=== PATIENT | female | born 1945 | race Caucasian/White ===

== ENCOUNTER 2017-03-02 08:04 | Outpatient (CLI) | payer MEDICARE, OTHER | END 2017-03-02 08:05 | disposition home or self-care (01) | DX: I10 Essential (primary) hypertension (principal); E03.9 Hypothyroidism, unspecified; E78.5 Hyperlipidemia, unspecified ==

== ENCOUNTER 2018-02-14 09:14 | Outpatient (CLI) | payer MEDICARE, OTHER ==
[2018-02-14 12:41] LABS: BASOPHILS % (AUTO) 0.8 %; EOSINOPHILS # (AUTO) 0.1 10^3/uL (0.0-0.7); EOSINOPHILS % (AUTO) 3.2 %; HGB - HEMOGLOBIN 14.2 g/dL (12.0-16.0); LYMPHOCYTES # (AUTO) 1.1 10^3/uL (1.5-3.5); LYMPHOCYTES % (AUTO) 26.6 %; MEAN CORPUSCULAR HEMOGLOBIN 30.2 pg (27.0-31.0); MEAN CORPUSCULAR HGB CONC 33.3 g/dL (32.0-36.0); MEAN CORPUSCULAR VOLUME 90.7 fL (81.0-99.0); MEAN PLATELET VOLUME 9.8 fL (7.9-10.8); MONOCYTES # (AUTO) 0.5 10^3/uL (0.0-1.0); MONOCYTES % (AUTO) 11.3 %; NEUTROPHILS # (AUTO) 2.4 10^3/uL (1.5-6.6); NEUTROPHILS % (AUTO) 58.1 %; PLT - PLATELET COUNT 198 10^3/uL (130-450); RED BLOOD COUNT 4.69 10^6/uL (4.20-5.40); RED CELL DISTRIBUTION WIDTH 13.7 % (12.0-15.0); WHITE BLOOD COUNT 4.1 x10^3/uL (4.8-10.8)
[2018-02-14 13:09] LABS: ALBUMIN 4.1 g/dL (3.2-5.5); ALBUMIN/GLOBULIN RATIO 1.2 (1.0-2.2); ALKALINE PHOSPHATASE 72 IU/L (42-121); ALT ALANINE AMINOTRANSFERASE 14 IU/L (10-60); AST ASPARTATE AMINOTRANSFERASE 17 IU/L (10-42); BILIRUBIN,TOTAL 0.7 mg/dL (0.2-1.0); BUN - BLOOD UREA NITROGEN 12 mg/dL (6-20); CALCIUM 9.1 mg/dL (8.5-10.3); CARBON DIOXIDE - CO2 26 mmol/L (21-32); CHLORIDE 106 mmol/L (101-111); CHOL/HDL RATIO 3.7 (<4.4); CHOLESTEROL 210 mg/dL; CREATININE 0.8 mg/dL (0.4-1.0); GFR - MDRD 71 (>89); GLUCOSE 96 mg/dL (70-100); HDL CHOLESTEROL 57 mg/dL; LDL CHOLESTEROL,CALCULATED 119 mg/dL; LDL/HDL RATIO 2.1 (<4.4); SODIUM 139 mmol/L (135-145); TOTAL PROTEIN 7.5 g/dL (6.7-8.2); VLDL CHOLESTEROL 34 mg/dL
== END 2018-02-14 09:15 | disposition home or self-care (01) ==
LOC: LAB.N 09:14
PROVIDERS: ATTEND Nurse Practitioner Gerontology
DX: E78.5 Hyperlipidemia, unspecified (principal); I10 Essential (primary) hypertension; E03.9 Hypothyroidism, unspecified
CPT/HCPCS: 36415; 80053; 80061; 83721; 84443; 85025

== ENCOUNTER 2019-02-09 08:00 | Outpatient (CLI) | payer MEDICARE, OTHER ==
[2019-02-09 12:57] LABS: BASOPHILS % (AUTO) 0.8 %; EOSINOPHILS # (AUTO) 0.2 10^3/uL (0.0-0.7); EOSINOPHILS % (AUTO) 3.3 %; HGB - HEMOGLOBIN 13.8 g/dL (12.0-16.0); LYMPHOCYTES # (AUTO) 1.6 10^3/uL (1.5-3.5); LYMPHOCYTES % (AUTO) 33.4 %; MEAN CORPUSCULAR HEMOGLOBIN 30.4 pg (27.0-31.0); MEAN CORPUSCULAR HGB CONC 33.1 g/dL (32.0-36.0); MEAN CORPUSCULAR VOLUME 91.8 fL (81.0-99.0); MEAN PLATELET VOLUME 9.8 fL (7.9-10.8); MONOCYTES # (AUTO) 0.5 10^3/uL (0.0-1.0); MONOCYTES % (AUTO) 10.4 %; NEUTROPHILS # (AUTO) 2.6 10^3/uL (1.5-6.6); NEUTROPHILS % (AUTO) 52.1 %; PLT - PLATELET COUNT 244 10^3/uL (130-450); RED BLOOD COUNT 4.55 10^6/uL (4.20-5.40); RED CELL DISTRIBUTION WIDTH 13.9 % (12.0-15.0); WHITE BLOOD COUNT 4.9 x10^3/uL (4.8-10.8)
[2019-02-09 13:32] LABS: CHOL/HDL RATIO 3.6 (<4.4); CHOLESTEROL 211 mg/dL; HDL CHOLESTEROL 59 mg/dL; LDL CHOLESTEROL,CALCULATED 113 mg/dL; LDL/HDL RATIO 1.9 (<4.4); VLDL CHOLESTEROL 39 mg/dL
== END 2019-02-09 23:59 | disposition home or self-care (01) ==
LOC: LAB.N 08:00
PROVIDERS: ATTEND Nurse Practitioner Gerontology
DX: E78.5 Hyperlipidemia, unspecified (principal); I10 Essential (primary) hypertension; E03.9 Hypothyroidism, unspecified
CPT/HCPCS: 36415; 80061; 83721; 84443; 85025

== ENCOUNTER 2019-06-01 10:03 | Outpatient (CLI) | payer MEDICARE, OTHER | END 2019-06-01 23:59 | disposition home or self-care (01) | LOC: LAB.N 10:03 | PROVIDERS: ATTEND Nurse Practitioner Gerontology | DX: E03.9 Hypothyroidism, unspecified (principal) | CPT/HCPCS: 36415; 84443 ==

== ENCOUNTER 2020-02-08 08:16 | Outpatient (CLI) | payer MEDICARE, OTHER ==
[2020-02-08 12:27] LABS: EOSINOPHILS % (AUTO) 3.4 %; HGB - HEMOGLOBIN 13.9 g/dL (12.0-16.0); LYMPHOCYTES % (AUTO) 31.3 %; MEAN CORPUSCULAR HEMOGLOBIN 30.2 pg (27.0-31.0); MEAN CORPUSCULAR HGB CONC 31.9 g/dL (32.0-36.0); MEAN CORPUSCULAR VOLUME 94.6 fL (81.0-99.0); MEAN PLATELET VOLUME 11.5 fL (7.9-10.8); MONOCYTES % (AUTO) 11.7 %; NEUTROPHILS % (AUTO) 52.1 %; PLT - PLATELET COUNT 257 10^3/uL (130-450); RED BLOOD COUNT 4.61 10^6/uL (4.20-5.40); RED CELL DISTRIBUTION WIDTH 13.7 % (12.0-15.0); WHITE BLOOD COUNT 4.1 x10^3/uL (4.8-10.8)
[2020-02-08 13:06] LABS: ALBUMIN 3.8 g/dL (3.2-5.5); ALBUMIN/GLOBULIN RATIO 1.1 (1.0-2.2); ALKALINE PHOSPHATASE 82 IU/L (42-121); ALT ALANINE AMINOTRANSFERASE 10 IU/L (10-60); AST ASPARTATE AMINOTRANSFERASE 14 IU/L (10-42); BILIRUBIN,TOTAL 0.8 mg/dL (0.2-1.0); BUN - BLOOD UREA NITROGEN 15 mg/dL (6-20); CARBON DIOXIDE - CO2 28 mmol/L (21-32); CHLORIDE 106 mmol/L (101-111); CHOL/HDL RATIO 3.4 (<4.4); CHOLESTEROL 208 mg/dL; CREATININE 0.8 mg/dL (0.4-1.0); GFR - MDRD 70 (>89); GLUCOSE 92 mg/dL (70-100); HDL CHOLESTEROL 61 mg/dL; LDL CHOLESTEROL,CALCULATED 125 mg/dL; SODIUM 140 mmol/L (135-145); TOTAL PROTEIN 7.2 g/dL (6.7-8.2); VLDL CHOLESTEROL 22 mg/dL
[2020-02-08 13:51] LABS: ABNORMAL LYMPHS % (MANUAL) 0 %
[2020-02-08 13:56] LABS: BAND NEUTROPHILS % (MANUAL) 2 %; EOSINOPHILS # (MANUAL) 0.2 10^3/uL (0-0.7); LYMPHOCYTES # (MANUAL) 1.6 10^3/uL (1.5-3.5); LYMPHOCYTES % (MANUAL) 35 %; MONOCYTES # (MANUAL) 0.4 10^3/uL (0.0-1.0)
[2020-02-08 13:57] LABS: DIFFERENTIAL COMMENT MANUAL DIFFERENTIAL
[2020-02-08 13:58] LABS: PLATELET ESTIMATE, MANUAL NORMAL (130-450,000) (NORMAL); PLATELET MORPHOLOGY NORMAL APPEARANCE (NORMAL); RBC MORPHOLOGY (MULTIPLE) NORMAL APPEARANCE (NORMAL)
== END 2020-02-08 23:59 | disposition home or self-care (01) ==
LOC: LAB.N 08:16
PROVIDERS: ATTEND Nurse Practitioner Gerontology
DX: E78.5 Hyperlipidemia, unspecified (principal); I10 Essential (primary) hypertension; E03.9 Hypothyroidism, unspecified
CPT/HCPCS: 36415; 80053; 80061; 83721; 84443; 85025

== ENCOUNTER 2021-01-16 08:19 | Outpatient (CLI) | payer MEDICARE, OTHER ==
[2021-01-16 12:30] LABS: ALBUMIN/GLOBULIN RATIO 1.2 (1.0-2.2); ALKALINE PHOSPHATASE 67 IU/L (42-121); ALT ALANINE AMINOTRANSFERASE 13 IU/L (10-60); AST ASPARTATE AMINOTRANSFERASE 16 IU/L (10-42); BUN - BLOOD UREA NITROGEN 13 mg/dL (6-20); CALCIUM 9.3 mg/dL (8.5-10.3); CARBON DIOXIDE - CO2 27 mmol/L (21-32); CHLORIDE 103 mmol/L (101-111); CHOL/HDL RATIO 3.4 (<4.4); CHOLESTEROL 232 mg/dL; CREATININE 0.7 mg/dL (0.4-1.0); GLUCOSE 86 mg/dL (70-100); HDL CHOLESTEROL 69 mg/dL; LDL CHOLESTEROL,CALCULATED 132 mg/dL; LDL/HDL RATIO 1.9 (<4.4); TOTAL PROTEIN 7.3 g/dL (6.7-8.2); VLDL CHOLESTEROL 31 mg/dL
[2021-01-16 12:37] LABS: BASOPHILS # (AUTO) 0.1 10^3/uL (0.0-0.1); BASOPHILS % (AUTO) 1.1 %; EOSINOPHILS # (AUTO) 0.2 10^3/uL (0.0-0.7); EOSINOPHILS % (AUTO) 3.4 %; LYMPHOCYTES # (AUTO) 1.5 10^3/uL (1.5-3.5); LYMPHOCYTES % (AUTO) 34.3 %; MEAN CORPUSCULAR HEMOGLOBIN 29.9 pg (27.0-31.0); MEAN CORPUSCULAR HGB CONC 30.8 g/dL (32.0-36.0); MEAN PLATELET VOLUME 10.9 fL (7.9-10.8); MONOCYTES # (AUTO) 0.5 10^3/uL (0.0-1.0); MONOCYTES % (AUTO) 10.5 %; NEUTROPHILS # (AUTO) 2.2 10^3/uL (1.5-6.6); NEUTROPHILS % (AUTO) 50.5 %; PLT - PLATELET COUNT 272 10^3/uL (130-450); RED BLOOD COUNT 4.68 10^6/uL (4.20-5.40); RED CELL DISTRIBUTION WIDTH 13.2 % (12.0-15.0); WHITE BLOOD COUNT 4.4 x10^3/uL (4.8-10.8)
== END 2021-01-16 23:59 | disposition home or self-care (01) ==
LOC: LAB.WCP 08:19
PROVIDERS: ATTEND Nurse Practitioner Family
DX: E78.5 Hyperlipidemia, unspecified (principal); I10 Essential (primary) hypertension; E03.9 Hypothyroidism, unspecified
CPT/HCPCS: 36415; 80053; 80061; 83721; 84443; 85025

== ENCOUNTER 2022-01-05 09:29 | Outpatient (CLI) | payer MEDICARE, OTHER ==
[2022-01-05 11:37] LABS: BASOPHILS % (AUTO) 0.8 %; EOSINOPHILS # (AUTO) 0.2 10^3/uL (0.0-0.7); EOSINOPHILS % (AUTO) 3.1 %; HCT - HEMATOCRIT 45.4 % (37.0-47.0); HGB - HEMOGLOBIN 14.4 g/dL (12.0-16.0); LYMPHOCYTES # (AUTO) 1.6 10^3/uL (1.5-3.5); MEAN CORPUSCULAR HEMOGLOBIN 29.8 pg (27.0-31.0); MEAN CORPUSCULAR HGB CONC 31.7 g/dL (32.0-36.0); MEAN PLATELET VOLUME 11.1 fL (7.9-10.8); MONOCYTES # (AUTO) 0.6 10^3/uL (0.0-1.0); MONOCYTES % (AUTO) 12.3 %; NEUTROPHILS # (AUTO) 2.4 10^3/uL (1.5-6.6); NEUTROPHILS % (AUTO) 49.4 %; PLT - PLATELET COUNT 266 10^3/uL (130-450); RED BLOOD COUNT 4.83 10^6/uL (4.20-5.40); WHITE BLOOD COUNT 4.8 x10^3/uL (4.8-10.8)
[2022-01-05 13:15] LABS: THYROID STIMULATING HORMONE 3.43 uIU/mL (0.34-5.60)
[2022-01-05 13:26] LABS: ALKALINE PHOSPHATASE 73 IU/L (42-121); CARBON DIOXIDE - CO2 27 mmol/L (21-32); CHLORIDE 102 mmol/L (101-111); CHOLESTEROL 179 mg/dL; GLUCOSE 111 mg/dL (70-100); POTASSIUM 4.2 mmol/L (3.5-5.0); SODIUM 138 mmol/L (135-145)
[2022-01-05 15:20] LABS: ALBUMIN/GLOBULIN RATIO 1.1 (1.0-2.2); ALT ALANINE AMINOTRANSFERASE 13 IU/L (10-60); AST ASPARTATE AMINOTRANSFERASE 17 IU/L (10-42); BILIRUBIN,TOTAL 0.6 mg/dL (0.2-1.0); BUN - BLOOD UREA NITROGEN 17 mg/dL (6-20); CHOL/HDL RATIO 2.8 (<4.4); CREATININE 0.8 mg/dL (0.4-1.0); GFR - MDRD 70 (>89); HDL CHOLESTEROL 65 mg/dL; LDL CHOLESTEROL,CALCULATED 87 mg/dL; LDL/HDL RATIO 1.3 (<4.4); TOTAL PROTEIN 7.5 g/dL (6.7-8.2); TRIGLYCERIDES 137 mg/dL; VLDL CHOLESTEROL 27 mg/dL
== END 2022-01-05 09:30 | disposition home or self-care (01) ==
LOC: LAB.N 09:29
PROVIDERS: ATTEND Nurse Practitioner Family
DX: I10 Essential (primary) hypertension (principal); E78.5 Hyperlipidemia, unspecified; E03.9 Hypothyroidism, unspecified; F17.200 Nicotine dependence, unspecified, uncomplicated
CPT/HCPCS: 36415; 80053; 80061; 83721; 84443; 85025

== ENCOUNTER 2022-01-22 12:25 | Outpatient (CLI) | payer MEDICARE, OTHER ==
--- NOTE | 2022-01-22 17:22 | DEXA Report ---
PROCEDURE: Dexa Spine and/or Hip INDICATIONS: MENOPAUSAL TECHNIQUE: Dual energy x-ray absorptiometry (DXA) was performed on a Evrent System. Regions measur ed are the AP Spine, femoral neck, and if needed forearm. COMPARISON: None. FINDINGS: Lumbar Spine: Bone Mineral Density 0.857 g/cm/cm,T score -2.7, osteoporosis Left Hip: Bone Mineral Density 0.590 g/cm/cm,T score -3.3, osteoporosis Left Femoral Neck: Bone Mineral Density 0.634 g/cm/cm, T score -2.9, osteoporosis (T score greater or equal to -1.0: NORMAL) (T score from -1.1 to -2.4: OSTEOPENIA) (T score less than or equal to -2.5 to: OSTEOPOROSIS) Impression: Osteoporosis. Patients with diagnosis of osteoporosis or osteopenia should have regular bone mineral density assess ment. For those eligible for Medicare, routine testing is allowed once every 2 years. Testing frequ ency can be increased for patients who have rapidly progressing disease or for those who are receivin g medical therapy to restore bone mass. Reviewed by: Sophia Enciso MD, PhD on 01/22/2022 5:20 PM PST Approved by: Sophia Enciso MD, PhD on 01/22/2022 5:20 PM PST Station ID: [id number]
== END 2022-01-22 12:26 | disposition home or self-care (01) ==
LOC: DI 12:25
PROVIDERS: ATTEND Nurse Practitioner Family
DX: Z13.820 Encounter for screening for osteoporosis (principal); M81.0 Age-related osteoporosis without current pathological fracture; Z78.0 Asymptomatic menopausal state

== ENCOUNTER 2022-10-14 10:39 | Outpatient (CLI) | payer MEDICARE, OTHER ==
--- NOTE | 2022-10-14 13:15 | CT Report ---
PROCEDURE: Low Dose Lung Cancer Screen INDICATIONS: SMOKER TECHNIQUE: Noncontrast low-dose axial images were acquired from the pulmonary apices to the posterior costophren ic angles. Multiplanar MIP reformats were then reconstructed. For radiation dose reduction, the follo wing was used: automated exposure control, adjustment of mA and/or kV according to patient size. COMPARISON: 02/05/2016. FINDINGS: Image quality: Excellent. Lungs and pleura: 2 mm anterobasal segment right lower lobe pulmonary nodule, image 160/4. This was not identifiable on the previous study from 6.5 years ago. Mediastinum: Heart size is normal. No pericardial effusion. No mediastinal adenopathy by size crit eria. Thoracic aorta and central pulmonary arteries are normal in size. Esophagus is normal in nati liliana. No hiatal hernia. Bones and chest wall: No suspicious bony lesions. No vertebral body compression fractures. No axil tana or supraclavicular adenopathy by size criteria. Thyroid is unremarkable as imaged. Abdomen: Visualized upper abdomen solid organs and bowel loops appear normal in the absence of contr ast. IMPRESSION: There is a 2 mm anterior basal segment right lower lobe pulmonary nodule which was not identified on the previous study, 6.5 years ago. No other pulmonary nodules. Lung RAD: 2 - Benign Appearance or Behavior. Nodules with a very low likelihood of becoming a clinica lly active cancer due to size or lack of growth. Recommendation: 2 - Continue annual screening with LDCT in 12 months. Non-Lung Significant Findings: None CLINICAL RECOMMENDATION STATEMENTS: In patients <35 years with an ITN detected on CT, MRI, or extrathyroidal ultrasound, the Committee re commends further evaluation with dedicated thyroid ultrasound if the nodule is "e1 cm and has no susp icious imaging features, and if the patient has normal life expectancy. In patients "e35 years with an ITN detected on CT, MRI, or extrathyroidal ultrasound, the Committee r ecommends further evaluation with dedicated thyroid ultrasound if the nodule is "e1.5 cm and has no s uspicious imaging features, and if the patient has normal life expectancy. (ACR, 2014) Reviewed by: Gamaliel Meier MD on 10/14/2022 1:13 PM PST Approved by: Gamaliel Meier MD on 10/14/2022 1:13 PM PST Station ID: [id number] Lung-Rad Lung-Recommendation [id number]-Ghisirrbvda-[id number]
== END 2022-10-14 10:40 | disposition home or self-care (01) ==
LOC: DI 10:39
PROVIDERS: ATTEND Nurse Practitioner Family
DX: Z12.2 Encounter for screening for malignant neoplasm of respiratory organs (principal); R91.1 Solitary pulmonary nodule; F17.210 Nicotine dependence, cigarettes, uncomplicated

== ENCOUNTER 2023-04-07 11:10 | Outpatient (CLI) | payer MEDICARE, OTHER ==
--- NOTE | 2023-04-08 09:51 | Mammography Report ---
BILATERAL DIGITAL SCREENING MAMMOGRAM 3D/2D: 04/07/2023 CLINICAL: Routine screening. Comparison is made to exams dated: 02/05/2016 mammogram, 03/14/2014 mammogram, and 02/16/2012 mammogram - Merged with [facility]. Both breasts are almost entirely fatty (category a/<25% glandular tissue). There is an asymmetry in the right breast posterior depth central to the nipple seen on the craniocau monster view only. This is more prominent. No other significant masses, calcifications, or other findings are seen in either breast. IMPRESSION: INCOMPLETE: NEEDS ADDITIONAL IMAGING EVALUATION The asymmetry in the right breast is indeterminate. Additional views with possible ultrasound are re commended. Based on the Tyrer Cuzick model (a risk assessment model) the patients lifetime risk is 2.8% and her 10 year risk is 0.0%. According to the ACR, ACS, and NCCN guidelines, an annual breast MRI exam janae g with mammogram is recommended if the patients lifetime risk is 20% or greater. This exam was interpreted at Station ID: [id number]. NOTE: For mammograms, a report in lay terms will be sent to the patient. Approximately 15% of breast malignancies will not be visualized mammographically. In the management of a palpable breast mass, a negative mammogram must not discourage biopsy of a clinically suspicious lesion. Electronically Signed By: Alfred Alexis M.D. lc/:04/07/2023 11:59:20 ACR BI-RADS Category 0: Incomplete 3340F PARENCHYMAL PATTERN: (F) - The breast(s) demonstrate(s) diffuse fatty replacement. BI-RADS CATEGORY: (0) - 0 Mammo and [place] [id number] Immediate follow-up LATERALITY: (B)
== END 2023-04-07 11:11 | disposition home or self-care (01) ==
LOC: DI.N 11:10
DX: Z12.31 Encounter for screening mammogram for malignant neoplasm of breast (principal); R92.8 Other abnormal and inconclusive findings on diagnostic imaging of breast

== ENCOUNTER 2023-05-18 08:57 | Outpatient (CLI) | payer MEDICARE, OTHER ==
--- NOTE | 2023-05-18 10:37 | Mammography Report ---
UNILATERAL RIGHT DIGITAL DIAGNOSTIC MAMMOGRAM 3D/2D WITH SPOT COMPRESSION: 05/18/2023 CLINICAL: Patient returns today to evaluate an asymmetry in the right breast. Comparison is made to exams dated: 04/07/2023 mammogram, 02/05/2016 mammogram, and 03/14/2014 mammogram - [facility]. The right breast is almost entirely fatty (category a/<25% glandular tissue). There is a possible asymmetry in the right breast posterior depth central to the nipple seen on the c raniocaudal view only. This is not seen in additional views. No other significant masses or calcifications are seen in the breast. IMPRESSION: NEGATIVE There is no mammographic evidence of malignancy. A 1 year screening mammogram is recommended. Exam findings were conveyed to the patient. Based on the Tyrer Cuzick model (a risk assessment model) the patients lifetime risk is 1.7% and her 10 year risk is 0.0%. According to the ACR, ACS, and NCCN guidelines, an annual breast MRI exam janae g with mammogram is recommended if the patients lifetime risk is 20% or greater. This exam was interpreted at Station ID: [id number]. NOTE: For mammograms, a report in lay terms will be sent to the patient. Approximately 15% of breast malignancies will not be visualized mammographically. In the management of a palpable breast mass, a negative mammogram must not discourage biopsy of a clinically suspicious lesion. Electronically Signed By: Christ Villa M.D. slc/:05/18/2023 09:38:11 ACR BI-RADS Category 1: Negative 3341F PARENCHYMAL PATTERN: (F) - The breast(s) demonstrate(s) diffuse fatty replacement. BI-RADS CATEGORY: (1) - 1 Mammogram [id number] 1 year screening LATERALITY: (B)
== END 2023-05-18 08:58 | disposition home or self-care (01) ==
LOC: DI 08:57
PROVIDERS: ATTEND Nurse Practitioner Family
DX: R92.8 Other abnormal and inconclusive findings on diagnostic imaging of breast (principal)

== ENCOUNTER 2023-10-12 13:23 | Outpatient (CLI) | payer MEDICARE, OTHER ==
[2023-10-12 18:07] LABS: BASOPHILS % (AUTO) 0.6 %; EOSINOPHILS # (AUTO) 0.1 10^3/uL (0.0-0.7); EOSINOPHILS % (AUTO) 1.8 %; HCT - HEMATOCRIT 45.6 % (37.0-47.0); HGB - HEMOGLOBIN 14.4 g/dL (12.0-16.0); LYMPHOCYTES # (AUTO) 1.9 10^3/uL (1.5-3.5); LYMPHOCYTES % (AUTO) 26.7 %; MEAN CORPUSCULAR HEMOGLOBIN 30.1 pg (27.0-31.0); MEAN CORPUSCULAR HGB CONC 31.6 g/dL (32.0-36.0); MEAN CORPUSCULAR VOLUME 95.4 fL (81.0-99.0); MEAN PLATELET VOLUME 11.2 fL (7.9-10.8); MONOCYTES # (AUTO) 0.7 10^3/uL (0.0-1.0); MONOCYTES % (AUTO) 9.3 %; NEUTROPHILS # (AUTO) 4.4 10^3/uL (1.5-6.6); NEUTROPHILS % (AUTO) 61.2 %; PLT - PLATELET COUNT 323 10^3/uL (130-450); RED BLOOD COUNT 4.78 10^6/uL (4.20-5.40); RED CELL DISTRIBUTION WIDTH 13.5 % (12.0-15.0); WHITE BLOOD COUNT 7.2 x10^3/uL (4.8-10.8)
[2023-10-12 18:19] LABS: THYROID STIMULATING HORMONE 2.92 uIU/mL (0.34-5.60)
[2023-10-12 18:26] LABS: ALBUMIN 4.3 g/dL (3.2-5.5); ALBUMIN/GLOBULIN RATIO 1.5 (1.0-2.2); ALKALINE PHOSPHATASE 78 IU/L (42-121); ALT ALANINE AMINOTRANSFERASE 9 IU/L (10-60); AST ASPARTATE AMINOTRANSFERASE 14 IU/L (10-42); BILIRUBIN,TOTAL 0.4 mg/dL (0.2-1.0); BUN - BLOOD UREA NITROGEN 17 mg/dL (6-20); CALCIUM 9.6 mg/dL (8.5-10.3); CARBON DIOXIDE - CO2 29 mmol/L (21-32); CHLORIDE 107 mmol/L (101-111); CHOL/HDL RATIO 3.8 (<4.4); CHOLESTEROL 220 mg/dL; CREATININE 0.8 mg/dL (0.6-1.3); GFR - MDRD 70 (>89); GLUCOSE 95 mg/dL (74-104); HDL CHOLESTEROL 58 mg/dL; POTASSIUM 4.4 mmol/L (3.5-4.5); SODIUM 141 mmol/L (135-145); TOTAL PROTEIN 7.1 g/dL (6.4-8.9); TRIGLYCERIDES 492 mg/dL (48-352)
[2023-10-12 19:13] LABS: LDL CHOLESTEROL,DIRECT 119 mg/dL (75-193); LDLD/HDL RATIO 2.1 (<4.4)
== END 2023-10-12 13:24 | disposition home or self-care (01) ==
LOC: LAB.N 13:23
PROVIDERS: ATTEND Nurse Practitioner Family
DX: I10 Essential (primary) hypertension (principal); E78.5 Hyperlipidemia, unspecified; E03.9 Hypothyroidism, unspecified
CPT/HCPCS: 36415; 80053; 80061; 83721; 84443; 85025

== ENCOUNTER 2023-11-23 10:31 | Outpatient (CLI) | payer MEDICARE, OTHER ==
--- NOTE | 2023-11-23 18:56 | CT Report ---
PROCEDURE: Low Dose Lung Cancer Screen INDICATIONS: SMOKER TECHNIQUE: A CT scan of the chest was performed. Intravenous contrast media was not administered. Images were re corded and evaluated at appropriate window settings. Reformats: axial MIP of the chest, coronal and s agittal. For radiation dose reduction, the following was used: automated exposure control, adjustment of mA and/or kV according to patient size. COMPARISON: 10/14/2022 FINDINGS: Image quality: Excellent. Prior cancer history: No. Lungs and pleura: No pleural effusions. No pneumothorax. No suspicious pulmonary nodules which requi re follow up. Previously described 2 mm nodule on the 10/14/22 CT is no longer visualized. Mediastinum: Heart size is normal. No pericardial effusion. No large vessel abnormality. No mediastin al adenopathy by size criteria. Chest wall and lower neck: Thyroid is unremarkable. No axillary or supraclavicular adenopathy by size . Bones: No aggressive osseous abnormality. Upper Abdomen: Unremarkable. IMPRESSION: Lung RAD: 1 - Negative. Recommendation: Continue annual screening in 12 Months with LDCT Non-Lung Significant Findings: None. Reviewed by: Abelardo Wilson MD on 11/23/2023 6:55 PM PST Approved by: Abelardo Wilson MD on 11/23/2023 6:55 PM PST Station ID: [id number]
== END 2023-11-23 10:32 | disposition home or self-care (01) ==
LOC: DI 10:31
PROVIDERS: ATTEND Nurse Practitioner Family
DX: Z12.2 Encounter for screening for malignant neoplasm of respiratory organs (principal); F17.210 Nicotine dependence, cigarettes, uncomplicated

== ENCOUNTER 2025-01-10 22:41 | Inpatient (IN) ==
--- NOTE | 2025-01-10 23:01 | ED Physician Documentation ---
PD HPI URI Stated complaint Stated Complaint: WHEEZING/LETHARGIC Chief complaint Chief Complaint: Resp History obtained from History obtained from: Patient and Family Additional information Additional information: productive cough and soa This is developed for this patient over the past 3 days. She has other family members who are sick with similar illness. She has had to use inhaler 1 time previous in her life and she does not have a diagnosis of COPD. She has a lot of wheezing associated with this. [place] Coma Scale Assess Eye opening: Spontaneous Verbal response: Oriented Motor response: Obeys Commands Total score: 15 Review of Systems The patient denies a fever she has had a cough productive of yellow phlegm and shortness of breath with wheezing. She denies nausea or vomiting she denies constipation or diarrhea and she denies extremity swelling. Meds/Allgy Home Medications Ambulatory Orders Medication Instructions Recorded Confirmed alendronate 70 mg tablet 70 mg PO QWEEK #13 tabs 12/11/24 12/11/24 amlodipine 10 mg tablet 10 mg PO QDAY high blood pressure 12/11/24 12/11/24 #90 tabs atenolol 25 mg tablet See Rx Instructions .Route 12/11/24 12/11/24 .COMPLEX #90 tabs atorvastatin 10 mg tablet 10 mg PO QPM high cholesterol #90 12/11/24 12/11/24 tabs levothyroxine 88 mcg tablet See Rx Instructions .Route 12/11/24 12/11/24 .COMPLEX #90 tabs lisinopril 40 mg tablet 40 mg PO QDAY high blood pressure 12/11/24 12/11/24 #90 tabs Allergies Allergies Allergy/AdvReac Type Severity Reaction Status Date / Time No Known Drug Allergies Allergy Verified 12/11/24 15:23 [facility] Medical History Medical History (Updated 01/11/25 @ 07:21 by Emil Henderson MD) Osteopenia Abnormal mammogram of right breast Surgical History Surgical History (Updated 12/11/24 @ 16:11 by RUPESH Varela) History of cholecystectomy History of appendectomy Family History Family History (Updated 12/11/24 @ 16:13 by RUPESH Varela) Son Diabetes Kidney disease CVA (cerebral vascular accident) Mother Heart attack Social History Social History (Updated 12/11/24 @ 15:25 by Alverto Quintero RN) Smoking Status: Current every day smoker How many cigarettes a day do you smoke? (20 cigarettes=1 Pk): 6 Relationship: Do you feel safe in your home environment?: Yes Suffered physical, verbal, emotional, or financial abuse?: No ETOH Use: None Substance Use: denies use Exam Exam On arrival the patient has audible wheeze and obvious work of breathing. She is on a nonrebreather mask with an O2 saturation of 86% on room air. The initial measurement was as low as 70%. Shortly after the patient arrived into the room. HENMT normocephalic and head/scalp atraumatic Eyes PERRL and EOMs intact bilaterally Respiratory There are inspiratory and expiratory wheezes throughout all lung gamez with diminished breath sounds. 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 and speech normal Psychiatry mental status grossly normal Skin skin color normal Results Vitals Vitals: Vital Signs - 24 hr 01/10/25 22:45 01/10/25 23:08 01/10/25 23:21 Temperature 36.4 C L Temperature Source Temporal Artery Scan Pulse Rate 83 85 Respiratory Rate 22 20 Blood Pressure 122/64 O2 Saturation 86 L O2 Source Room air Non-rebreather mask If not protocol: Oxygen Flow, liters/minute 15 5 Pain Intensity 0 01/11/25 00:10 01/11/25 02:11 01/11/25 02:16 Temperature Temperature Source Pulse Rate 83 69 68 Respiratory Rate 20 20 20 Blood Pressure 126/81 125/70 O2 Saturation 98 97 O2 Source Room air Nasal cannula Nasal cannula If not protocol: Oxygen Flow, liters/minute 5 5 Pain Intensity 01/11/25 02:22 01/11/25 02:29 01/11/25 03:20 Temperature Temperature Source Pulse Rate 78 Respiratory Rate 20 Blood Pressure 107/68 O2 Saturation 92 O2 Source Nasal cannula If not protocol: Oxygen Flow, liters/minute 3 3 5 Pain Intensity 01/11/25 04:16 01/11/25 04:31 01/11/25 05:57 Temperature Temperature Source Pulse Rate 74 74 Respiratory Rate 20 20 Blood Pressure 105/63 O2 Saturation 96 O2 Source Nasal cannula Nasal cannula If not protocol: Oxygen Flow, liters/minute 3 2 2 Pain Intensity 01/11/25 06:00 01/11/25 07:00 01/11/25 08:24 Temperature 36.3 C L 36.4 C L Temperature Source Temporal Artery Scan Temporal Artery Scan Pulse Rate 68 Respiratory Rate 18 Blood Pressure 99/56 L O2 Saturation 85 L 96 O2 Source Room air Nasal cannula If not protocol: Oxygen Flow, liters/minute 3 Pain Intensity 0 Oxygen O2 Source Nasal cannula Labs Labs: Laboratory Tests 01/10/25 01/10/25 22:58 23:05 WBC 12.2 H RBC 4.84 Hgb 14.4 Hct 44.6 MCV 92.1 MCH 29.8 MCHC 32.3 RDW 12.3 Plt Count 272 MPV 10.3 Neut # (Auto) 9.2 H Lymph # (Auto) 1.2 L [place] # (Auto) 1.4 H Eos # (Auto) 0.2 Baso # (Auto) 0.0 Absolute Nucleated RBC 0.00 Nucleated RBC % 0.0 Sodium 131 L Potassium 3.9 Chloride 93 L Carbon Dioxide 33 H Anion Gap 5.0 L BUN 25 H Creatinine 0.6 Estimated GFR (MDRD) 97 Glucose 136 H Calcium 9.2 Total Bilirubin 0.9 AST 26 ALT 22 Alkaline Phosphatase 60 Total Protein 7.8 Albumin 4.2 Globulin 3.6 Albumin/Globulin Ratio 1.2 Lipase 10 L Nasal Adenovirus (PCR) NOT DETECTED Nasal B. parapertussis DNA (PCR) NOT DETECTED Nasal Coronavir 229E PCR NOT DETECTED Nasal Coronavir HKU1 PCR NOT DETECTED Nasal Coronavir NL63 PCR NOT DETECTED Nasal Coronavir OC43 PCR NOT DETECTED Nasal Enterovir/Rhinovir PCR NOT DETECTED Nasal Influenza B PCR NOT DETECTED Nasal Influenza A PCR NOT DETECTED Nasal Parainfluen 1 PCR NOT DETECTED Nasal Parainfluen 2 PCR NOT DETECTED Nasal Parainfluen 3 PCR NOT DETECTED Nasal Parainfluen 4 PCR NOT DETECTED Nasal RSV (PCR) NOT DETECTED Nasal B.pertussis DNA PCR NOT DETECTED Nasal C.pneumoniae (PCR) NOT DETECTED [place] Human Metapneumo PCR DETECTED A Nasal M.pneumoniae (PCR) NOT DETECTED Nasal SARS-CoV-2 (PCR) NOT DETECTED Rads (name of study) chest: Interpretation: Impression: Mild right base effusion and opacity, likely infectious. Consider future imaging surveillance to assess for resolution. Normal heart size. Degenerative osseous changes. PD Medical Decision Making ED course Complexity details: reviewed old records, reviewed results, re-evaluated patient, considered differential, d/w patient and d/w family Reviewed Lab Results: We reviewed a complete blood count showing an elevated white blood cell count of 12.2 and normal hemoglobin hematocrit and platelets differential shows additional neutrophils chemistries show a serum sodium low at 131 potassium normal at 3.9 chloride low at 93 bicarb high at 33 BUN elevated at 25 creatinine low at 0.6 liver functions are normal nasal PCR is positive for human metapneumovirus. This patient's chest x-ray shows infiltrate in the right base. I interpret these laboratory studies to indicate the patient likely has an i nfection with an elevated white blood cell count and she appears dehydrated. With elevated BUN. ED course: 79-year-old Ethel Barba presents to the emergency department with acute wheezing and she is hypoxic. She is diagnosed with human metapneumovirus from a nasal swab and she appears to have a pneumonia on her plain film. She is administered dexamethasone a DuoNeb IV fluid and Rocephin. She is administered sequential treatments with sequential improvement she is eventually taken off of the nonrebreather mask and put onto nasal cannula oxygen. She continues to be hypoxic off of oxygen. At shift change her care is turned over to Dr. Boyer anticipating admission to the hospital. Discharge Plan Discharge Patient Disposition: 66 [facility] DC/Xfer Condition: Fair Clinical Impression: Human metapneumovirus pneumonia Respiratory failure Qualifiers: Chronicity: acute Respiratory failure complication: hypoxia Qualified Code(s): J96.01 - Acute respiratory failure with hypoxia Prescriptions: No Action atorvastatin 10 mg tablet 10 mg PO QPM Qty: 90 0RF amlodipine 10 mg tablet 10 mg PO QDAY Qty: 90 0RF atenolol 25 mg tablet See Rx Instructions .ROUTE .COMPLEX Qty: 90 0RF Dose Instruction: take 1 tablet by mouth once daily Rx Instructions: take 1 tablet by mouth once daily lisinopril 40 mg tablet 40 mg PO QDAY Qty: 90 0RF levothyroxine 88 mcg tablet See Rx Instructions .ROUTE .COMPLEX Qty: 90 0RF Dose Instruction: take 1 tablet by mouth once daily for THYROID REPLACEMENT Rx Instructions: take 1 tablet by mouth once daily for THYROID REPLACEMENT alendronate 70 mg tablet 70 mg PO QWEEK Qty: 13 3RF Rx Instructions: Take medication on an empty stomach, with at least 8 oz water. Stay upright for at least 30 minutes after med taken to prevent gastritis Print Language: Luxembourgish
[2025-01-10] MEDS: IPRATROPIUM/ALBUTEROL 3 ML NEB INH STA (23:08)
[2025-01-10 23:12] LABS: BASOPHILS % (AUTO) 0.3 %; EOSINOPHILS # (AUTO) 0.2 10^3/uL (0.0-0.7); EOSINOPHILS % (AUTO) 1.7 %; HCT - HEMATOCRIT 44.6 % (37.0-47.0); HGB - HEMOGLOBIN 14.4 g/dL (12.0-16.0); LYMPHOCYTES # (AUTO) 1.2 10^3/uL (1.5-3.5); LYMPHOCYTES % (AUTO) 10.1 %; MEAN CORPUSCULAR HEMOGLOBIN 29.8 pg (27.0-31.0); MEAN CORPUSCULAR HGB CONC 32.3 g/dL (32.0-36.0); MEAN CORPUSCULAR VOLUME 92.1 fL (81.0-99.0); MEAN PLATELET VOLUME 10.3 fL (7.9-10.8); MONOCYTES # (AUTO) 1.4 10^3/uL (0.0-1.0); MONOCYTES % (AUTO) 11.7 %; NEUTROPHILS # (AUTO) 9.2 10^3/uL (1.5-6.6); NEUTROPHILS % (AUTO) 75.5 %; PLT - PLATELET COUNT 272 10^3/uL (130-450); RED BLOOD COUNT 4.84 10^6/uL (4.20-5.40); RED CELL DISTRIBUTION WIDTH 12.3 % (12.0-15.0); WHITE BLOOD COUNT 12.2 x10^3/uL (4.8-10.8)
[2025-01-10 23:33] LABS: ALBUMIN 4.2 g/dL (3.2-5.5); ALBUMIN/GLOBULIN RATIO 1.2 (1.0-2.2); BILIRUBIN,TOTAL 0.9 mg/dL (0.2-1.0); CALCIUM 9.2 mg/dL (8.5-10.3); CREATININE 0.6 mg/dL (0.6-1.3); POTASSIUM 3.9 mmol/L (3.5-4.5); TOTAL PROTEIN 7.8 g/dL (6.4-8.9)
--- NOTE | 2025-01-10 23:38 | XRAY Report ---
PROCEDURE: XR Chest 1V INDICATIONS: cough soa TECHNIQUE: One view of the chest was acquired. COMPARISON: 12/06/2024 CT FINDINGS AND IMPRESSION: Mild right base effusion and opacity, likely infectious. Consider future imaging surveillance to ass ess for resolution. Normal heart size. Degenerative osseous changes. Reviewed by: Alfred Alexis MD on 01/10/2025 11:37 PM PST Approved by: Alfred Alexis MD on 01/10/2025 11:37 PM PST Station ID: [id number]
[2025-01-10] MEDS: CHERRY SYRUP 10 ML UDC PO ONE (23:42)
[2025-01-10] MEDS: DEXAMETHASONE 10 MG/ML VIAL PO STA (23:42)
[2025-01-11 00:01] LABS: B. PARAPERTUSSIS- RESP PCR PAN NOT DETECTED; B. PERTUSSIS- RESP PCR PANEL NOT DETECTED; C. PNEUMONIAE- RESP PCR PANEL NOT DETECTED; CORONAVIRUS 229E-RESP PCR NOT DETECTED; CORONAVIRUS HKU1-RESP PCR NOT DETECTED; CORONAVIRUS NL63-RESP PCR NOT DETECTED; CORONAVIRUS OC43-RESP PCR NOT DETECTED; HUMAN METAPNEUMOVIRUS DETECTED; INFLUENZA A- RESP PCR PANEL NOT DETECTED; INFLUENZA B - RESP PCR PANEL NOT DETECTED; M. PNEUMONIAE- RESP PCR PANEL NOT DETECTED; PARAINFLUENZA VIRUS 1 NOT DETECTED; PARAINFLUENZA VIRUS 2 NOT DETECTED; PARAINFLUENZA VIRUS 4 NOT DETECTED; RHINOVIRUS/ENTEROVIRUS NOT DETECTED; RSV- RESP PCR PANEL NOT DETECTED; SARS-CoV-2 -RESP PCR PANEL NOT DETECTED
[2025-01-11] MEDS: IPRATROPIUM/ALBUTEROL 3 ML NEB INH STA (02:10)
[2025-01-11] MEDS ORDERED: cefTRIAXone 1 GM VIAL ONE (04:14)
[2025-01-11] MEDS: ALBUTEROL NEB 2.5 MG/3 ML INH STA (04:16)
[2025-01-11] MEDS: cefTRIAXone 1 GM in SODIUM CHLORIDE 0.9% MINIBAG 100 ML IV STA (04:17)
[2025-01-11] MEDS: SODIUM CHLORIDE 0.9% 1,000 ML IV STA (04:22)
[2025-01-11] MEDS: AZITHROMYCIN INJ 500 MG in SODIUM CHLORIDE 0.9% 250 ML IV STA (08:23)
--- NOTE | 2025-01-11 10:23 | HISTORY & PHYSICAL EXAMINATION ---
Chief Complaint Chief Complaint Chief Complaint: Difficulty breathing History of Present Illness Admitted From Admitted From:: Home History Obtained From Records Reviewed: EMR History obtained from: Patient Exam Limitations: None History of Present Illness HPI Comment/Other: Patient is a 79-year-old female with a history of tobacco use, hypertension, hypothyroidism who presents after feeling sick for the last 2 to 3 days. She states initially, she had some fatigue, fevers, chills. This is followed by a productive cough. She remains with this cough productive of yellow to green sputum. She has no chest pain, no body aches. After the cough, she noted some wheezing, as well as difficulty breathing. This is what ultimately prompted her to come to the hospital. She does smoke daily, but 5 to 6 cigarettes a day. She has never been diagnosed with any underlying lung disease, including COPD or asthma. She does not use inhalers at home. In the ER, she was saturating 85% on room air she is afebrile, heart rate is 68, respiratory rate is 18, and her blood pressure is ranging between 99/56 to 124/64. Lab work was done, and it indicates a leukocytosis of 12.2, slight hyponatremia of 131. Respiratory viral panel is positive for human metapneumovirus. Chest x-ray does show mild right effusion and opacity. She was started on Rocephin and azithromycin in the emergency room, and admitted for acute hypoxic respiratory failure. Meds/Allgy Home Medications Ambulatory Orders Medication Instructions Recorded Confirmed alendronate 70 mg tablet 70 mg PO QWEEK #13 tabs 12/11/24 01/11/25 amlodipine 10 mg tablet 10 mg PO QDAY high blood pressure 12/11/24 01/11/25 #90 tabs atenolol 25 mg tablet See Rx Instructions .Route 12/11/24 01/11/25 .COMPLEX #90 tabs atorvastatin 10 mg tablet 10 mg PO QPM high cholesterol #90 12/11/24 01/11/25 tabs lisinopril 40 mg tablet 40 mg PO QDAY high blood pressure 12/11/24 01/11/25 #90 tabs levothyroxine 88 mcg tablet 88 mcg PO QDAC 01/11/25 01/11/25 Allergies Allergies Allergy/AdvReac Type Severity Reaction Status Date / Time No Known Drug Allergies Allergy Verified 12/11/24 15:23 [facility] Medical History Medical History (Updated 01/11/25 @ 11:54 by Dino Trevizo MD) Osteopenia Abnormal mammogram of right breast Surgical History Surgical History History of cholecystectomy History of appendectomy Family History Family History Son Diabetes Kidney disease CVA (cerebral vascular accident) Mother Heart attack Social History Social History Smoking Status: Current every day smoker How many cigarettes a day do you smoke? (20 cigarettes=1 Pk): 6 Do you dip or chew tobacco?: No Do you vape?: No Relationship: Level: Independent Do you feel safe in your home environment?: Yes Suffered physical, verbal, emotional, or financial abuse?: No ETOH Use: None Substance Use: denies use POLST Patient has POLST: No POLST Status: Full Code Review of Systems Constitutional Reports: Fatigue, Fever, Chills, Weakness and Diaphoresis Eyes Denies: Pain, Irritation, Amaurosis, Blurry vision or Floaters Ears, nose, mouth, and throat Denies: Ear pain, Ear discharge, Hearing loss, Hearing aids, Throat pain, Neck pain, Throat swelling or Hoarseness Cardiovascular Reports: shortness of breath with exertion; Denies: Irregular heart rate, chest pain, palpitations, edema, swelling of feet/ankles or shortness of breath when lying down Respiratory Reports: Shortness of breath, Cough, Sputum production, Change in phlegm color, Wheezing, SOB with exertion and Chest congestion; Denies: Pleuritic pain or Pain on inspiration Gastrointestinal Denies: Abdominal pain, Abdominal distention, Nausea, Vomiting, Poor appetite, Heartburn, Diarrhea or Constipation Genitourinary Denies: Painful urination, Urinary frequency, Urinary urgency or Nocturia Musculoskeletal Denies: Back pain, Neck pain, Extremity pain, Extremity swelling or Gout Integumentary/Breast Denies: Rash, Itching, Dryness, Redness or Skin pain Neurological Reports: General weakness; Denies: Headache, Focal weakness, Weakness in extremities, Numbness in extremities or Pre-existing deficit Psychiatric Denies: Depression, Anxiety, Mood swings, Panic attacks or Change in sleep pattern Endocrine Reports: Fatigue; Denies: Excessive thirst or Polyphagia Hematologic/Lymphatic Denies: Anemia, Easy bruising or Petechiae Allergic/Immunologic Reports: Wheezing; Denies: Throat swelling, Tongue swelling or Facial swelling Prior Level of Functionality: Independent. Lives with granddaughter. Exam Constitutional normal general appearance, no apparent distress, average body habitus, no limitations and alert HENMT normocephalic, head/scalp atraumatic, hearing grossly normal bilaterally and nasal mucous membranes normal Eyes PERRL, EOMs intact bilaterally, conjunctivae normal and no scleral icterus Neck/C-Spine visual inspection normal, trachea midline and cervical spine nontender Lymph no lymphadenopathy noted Chest inspection of chest normal and palpation of chest normal Respiratory breath sounds equal bilaterally, normal respiratory effort, wheezing noted (expiratory wheezes), no rales and no use of accessory muscles Cardiovascular normal heart rate noted, regular rhythm noted, no gallop, no rub and no murmur Gastrointestinal abdomen normal to inspection, nondistended, normoactive bowel sounds and no hepatosplenomegaly Genitourinary no CVA tenderness and bladder normal to palpation Back/Pelvis spine normal to inspection, no thoracic spine tenderness and no lumbar spine tenderness Extremities normal to inspection, normal to palpation, no tenderness and full ROM Neurology no movement abnormality noted, no focal motor deficit noted, gait normal, speech normal and coordination normal Psychiatry mental status grossly normal, oriented x3, thought process normal, cooperative and affect normal Skin skin color normal, no rash and no ecchymosis noted Conclusion/Plan Problem List (1) Acute hypoxic respiratory failure: Plan: Patient requiring 2 L of oxygen to maintain saturations greater than 92%. Does have an extensive history of tobacco use, currently smoking 5-6 cigarettes. Concern for possible underlying COPD, undiagnosed. Continue DuoNebs 3 mL RT 4 times daily. Continue prednisone 40 mg daily. Continue Rocephin and azithromycin for likely superimposed bacterial pneumonia. (2) Human metapneumovirus pneumonia: Plan: Management as above. (3) Tobacco dependence: Plan: Advised to quit smoking if able, get PFTs done in the outpatient setting. Nicotine patch ordered, pending. (4) Essential hypertension: Plan: Hold antihypertensives at this time, patient has been low to normotensive at this time. (5) Hypothyroid: Plan: Continue Synthroid. Qualifiers: Hypothyroidism type: unspecified Qualified Code(s): E03.9 - Hypothyroidism, unspecified Lab Results Lab results reviewed: Yes 01/10/25 23:05 01/10/25 23:05 Diagnostic Imaging Results Diagnostic Imaging Results: positive Final report reviewed Core Measures Anticipated LOS I expect patient to be DC'd or transferred within 96 hours.: Yes Issues Hospital Issues and Management Plan: None anticipated. DVT/VTE - Prophylaxis VTE/DVT Device ordered at admit?: Yes VTE/DVT Prophylaxis med ordered at admit?: Yes Stroke - Rehab Assessment Rehab services assessment to be ordered?: No AMI - Statin at Admit Aspirin Prescribed on Admit: No Not Ordered - Medical Reason: Not indicated
[2025-01-11] MEDS: predniSONE 20 MG TABLET PO SCH (10:40)
[2025-01-11] MEDS ORDERED: SODIUM CHLORIDE FLUSH 0.9% 10 ML SYRINGE IVP PRN (11:19)
[2025-01-11] MEDS ORDERED: ACETAMINOPHEN 325 MG TABLET PO PRN (11:19)
[2025-01-11] MEDS ORDERED: ONDANSETRON ODT 4 MG TABLET TL PRN (11:19)
[2025-01-11] MEDS: IPRATROPIUM/ALBUTEROL 3 ML NEB INH SCH (11:50)
--- NOTE | 2025-01-11 12:02 | PHARMACY PROGRESS NOTE ---
Best Possible Medication History Admit Date and Time: 01/11/25 [id number] Home Medications Medication Instructions Recorded Confirmed Type alendronate 70 mg tablet 70 mg PO QWEEK #13 tabs 12/11/24 01/11/25 Rx amlodipine 10 mg tablet 10 mg PO QDAY high blood pressure 12/11/24 01/11/25 Rx #90 tabs atenolol 25 mg tablet See Rx Instructions .Route 12/11/24 01/11/25 Rx .COMPLEX #90 tabs atorvastatin 10 mg tablet 10 mg PO QPM high cholesterol #90 12/11/24 01/11/25 Rx tabs lisinopril 40 mg tablet 40 mg PO QDAY high blood pressure 12/11/24 01/11/25 Rx #90 tabs levothyroxine 88 mcg tablet 88 mcg PO QDAC 01/11/25 01/11/25 History Processed by: Pharmacy Medications reviewed in ED?: No Medication History completed: Yes Secondary Source(s): Pharmacy records and Insurance records [facility] Statement: As the person ultimately responsible for medication therapy, providers are able to order a medication from an existing home medication list in [facility] via the "Reconcile Routine" prior to Confirmation of that medication by ground support equipment mechanic. Such practice is discouraged except when the physician, in their clinical judgment, deems that a medical need exists for a medication without regard to previous use.
[2025-01-11] MEDS: LACTATED RINGERS 1,000 ML IV SCH (12:19)
--- NOTE | 2025-01-11 13:51 | ED Physician Documentation ---
ED Addendum Addendum Addendum: Patient was signed out to me of awaiting bed availability for inpatient hospitalization. Patient remained hypoxic, given IV antibiotics for pneumonia. Discussed case the hospitalist who accepts patient admitted Discharge Plan Discharge Patient Disposition: [facility] DC/Xfer Condition: Fair Clinical Impression: Human metapneumovirus pneumonia Respiratory failure Qualifiers: Chronicity: acute Respiratory failure complication: hypoxia Qualified Code(s): J96.01 - Acute respiratory failure with hypoxia Interventions: ED Admission Assessment Last Done: 01/11/25 11:19
[2025-01-11] MEDS: SODIUM CHLORIDE FLUSH 0.9% 10 ML SYRINGE IVP SCH (21:50)
[2025-01-11] MEDS: ATORVASTATIN 10 MG TABLET PO SCH (21:52)
[2025-01-12 05:44] LABS: HCT - HEMATOCRIT 38.3 % (37.0-47.0); HGB - HEMOGLOBIN 12.2 g/dL (12.0-16.0); MEAN CORPUSCULAR HEMOGLOBIN 29.6 pg (27.0-31.0); MEAN CORPUSCULAR HGB CONC 31.9 g/dL (32.0-36.0); RED BLOOD COUNT 4.12 10^6/uL (4.20-5.40); RED CELL DISTRIBUTION WIDTH 12.4 % (12.0-15.0); WHITE BLOOD COUNT 11.2 x10^3/uL (4.8-10.8)
[2025-01-12 06:07] LABS: CALCIUM 8.5 mg/dL (8.5-10.3); CREATININE 0.5 mg/dL (0.6-1.3); MAGNESIUM 2.2 mg/dL (1.7-2.3)
[2025-01-12] MEDS: LEVOTHYROXINE 88 MCG TABLET PO SCH (06:35)
[2025-01-12] MEDS: AZITHROMYCIN 250 MG TABLET PO SCH (09:00)
[2025-01-12] MEDS: cefTRIAXone 1 GM VIAL IVP SCH (09:00)
[2025-01-12] MEDS: ENOXAPARIN 40 MG/0.4 ML SYRINGE SUBQ SCH (09:00)
--- NOTE | 2025-01-12 10:07 | PROVIDER PROGRESS NOTE ---
Subjective Subjective Subjective: Today, patient feels better. She is still coughing. Her wheezing is improved. Her shortness of breath is improved. She has no pleuritic chest pain. She is eating and drinking well. She's still requiring 2 L of oxygen, will continue to wean this down. Current Medications Current Medications Current Medications: Current Medications Generic Name Dose Route Start Last Admin Trade Name Freq PRN Reason Stop Dose Admin Acetaminophen 650 mg 01/11/25 11:19 Acetaminophen 325 Mg Tablet PO Q4HR PRN Pain 1 to 4, or Fever Albuterol/Ipratropium 3 ml 01/11/25 11:19 01/12/25 05:48 Ipratropium/Albuterol 3 Ml Neb INH 3 ml RTQID BETTIE Administration Atorvastatin Calcium 10 mg 01/11/25 21:00 01/11/25 21:52 Atorvastatin 10 Mg Tablet PO 10 mg QPM BETTIE Administration Azithromycin 500 mg 01/12/25 09:00 01/12/25 09:00 Azithromycin 250 Mg Tablet PO 500 mg DAILY BETTIE Administration Ceftriaxone Sodium 1 gm 01/12/25 09:00 01/12/25 09:00 Ceftriaxone 1 Gm Vial IVP 1 gm DAILY BETTIE Administration Enoxaparin Sodium 40 mg 01/12/25 09:00 01/12/25 09:00 Enoxaparin 40 Mg/0.4 Ml Syringe SUBQ 40 mg DAILY BETTIE Administration Guaifenesin 10 ml 01/11/25 11:19 Guaifenesin/Dextromethorphan 10 Ml Udc PO Q6HR PRN Cough Levothyroxine Sodium 88 mcg 01/12/25 07:00 01/12/25 06:35 Levothyroxine 88 Mcg Tablet PO 88 mcg QDAC BETTIE Administration Ondansetron HCl 4 mg 01/11/25 11:19 Ondansetron Odt 4 Mg Tablet TL Q6HR PRN Nausea / Vomiting Prednisone 40 mg 01/11/25 10:21 01/12/25 08:02 Prednisone 20 Mg Tablet PO 40 mg DAILY BETTIE Administration Sodium Chloride 10 ml 01/11/25 11:19 Sodium Chloride Flush 0.9% 10 Ml Syringe IVP PRN PRN NEEDED PER PROVIDER ORDERS Sodium Chloride 10 ml 01/11/25 17:00 01/12/25 09:01 Sodium Chloride Flush 0.9% 10 Ml Syringe IVP 10 ml 0100,0900,1700 BETTIE Administration Objective Vital Signs/Intake & Output Reviewed Vital Signs: Yes Vital Signs: Vital Signs x48h Temp Pulse Pulse Pulse Resp BP Pulse Ox 01/12/25 07:46 97.5 F L 83 20 138/78 H 94 01/12/25 06:00 98.1 F 78 18 144/75 H 94 01/12/25 05:48 01/12/25 05:48 77 18 O2 Flow Rate 01/12/25 07:46 2 01/12/25 06:00 2 01/12/25 05:48 2 01/12/25 05:48 2 Intake & Output: Intake & Output 01/09/25 01/10/25 01/11/25 01/12/25 23:59 23:59 23:59 23:59 Intake Total 3323 / 3323 1530 / 1530 Balance 3323 / 3323 1530 / 1530 Weight (kg) 60.781 kg 59.5 kg Objective General Appearance: positive No acute distress and Alert Eyes Bilateral: positive Normal inspection, PERRL and EOMI ENT: positive ENT inspection nml, Pharynx nml and No signs of dehydration Neck: positive Nml inspection, Thyroid nml and No JVD Respiratory: positive Chest non-tender and No respiratory distress; negative Wheezes (mild bibasilar) Cardiovascular: positive Regular rate & rhythm, No murmur and No gallop; negative Bradycardia, Systolic murmur or Diastolic murmur Abdomen: positive Non-tender, No organomegaly and No distention; negative Tenderness, Guarding, Hepatomegaly or Splenomegaly Back: positive Nml inspection; negative CVA tenderness (R) or CVA tenderness (L) Skin: positive Color nml, No rash and Warm Extremities: positive Non-tender, Full ROM and Nml appearance Neurologic/Psychiatric: positive Oriented x3 and Mood/affect nml Lab Results 01/12/25 05:35 01/12/25 05:35 Other Labs: Lab Results x24hrs 01/12/25 Range/Units 05:35 WBC 11.2 H (4.8-10.8) x10^3/uL RBC 4.12 L (4.20-5.40) 10^6/uL Hgb 12.2 (12.0-16.0) g/dL Hct 38.3 (37.0-47.0) % MCV 93.0 (81.0-99.0) fL MCH 29.6 (27.0-31.0) pg MCHC 31.9 L (32.0-36.0) g/dL RDW 12.4 (12.0-15.0) % Plt Count 264 (130-450) 10^3/uL MPV 10.0 (7.9-10.8) fL Sodium 136 (135-145) mmol/L Potassium 4.0 (3.5-4.5) mmol/L Chloride 102 (101-111) mmol/L Carbon Dioxide 31 (21-32) mmol/L Anion Gap 3.0 L (6-13) BUN 16 (6-20) mg/dL Creatinine 0.5 L (0.6-1.3) mg/dL Estimated GFR (MDRD) 119 (>89) Glucose 125 H (74-104) mg/dL Calcium 8.5 (8.5-10.3) mg/dL Magnesium 2.2 (1.7-2.3) mg/dL Diagnostic Imaging Diagnostic Imaging Results: positive Final report reviewed Assessment/Plan Problem List (1) Acute hypoxic respiratory failure: Impression: Patient requiring 2 L of oxygen to maintain saturations greater than 92%. Does have an extensive history of tobacco use, currently smoking 5-6 cigarettes. Concern for possible underlying COPD, undiagnosed. Continue DuoNebs 3 mL RT 4 times daily. Continue prednisone 40 mg daily. Continue Rocephin and azithromycin for likely superimposed bacterial pneumonia. Will do oxygen desaturation test tomorrow morning; likely d/c tomorrow pending clinical course. (2) Human metapneumovirus pneumonia: Impression: Management as above. (3) Tobacco dependence: Impression: Advised to quit smoking if able, get PFTs done in the outpatient setting. Nicotine patch ordered. (4) Essential hypertension: Impression: With improvement in blood pressure, will restart atenolol and lisinopril today. Hold amlodipine. (5) Hypothyroid: Impression: Continue Synthroid. Qualifiers: Hypothyroidism type: unspecified Qualified Code(s): E03.9 - Hypothyroidism, unspecified
[2025-01-12] MEDS: lisinopriL 20 MG TABLET PO SCH (14:39)
[2025-01-12] MEDS: atenoloL 25 MG TABLET PO SCH (14:39)
[2025-01-13] MEDS: guaiFENesin/DEXTROMETHORPHAN 10 ML UDC PO PRN (02:11)
[2025-01-13 04:46] LABS: HCT - HEMATOCRIT 39.2 % (37.0-47.0); HGB - HEMOGLOBIN 12.4 g/dL (12.0-16.0); MEAN CORPUSCULAR HEMOGLOBIN 29.3 pg (27.0-31.0); MEAN CORPUSCULAR HGB CONC 31.6 g/dL (32.0-36.0); MEAN CORPUSCULAR VOLUME 92.7 fL (81.0-99.0); RED BLOOD COUNT 4.23 10^6/uL (4.20-5.40); RED CELL DISTRIBUTION WIDTH 12.5 % (12.0-15.0); WHITE BLOOD COUNT 9.2 x10^3/uL (4.8-10.8)
[2025-01-13 04:58] LABS: CALCIUM 8.3 mg/dL (8.5-10.3); CREATININE 0.5 mg/dL (0.6-1.3); POTASSIUM 3.7 mmol/L (3.5-4.5)
[2025-01-13] MEDS: polyethylene glycoL 3350 17 GM PACKET PO SCH (09:29)
--- NOTE | 2025-01-13 11:03 | PROVIDER PROGRESS NOTE ---
Subjective Subjective Subjective: Patient continues to have some coughing fits. She is still requiring 2 L of oxygen to maintain her saturations. Denies any fevers or chills. Overall, steadily starting to feel better. Will continue to wean down oxygen. Likely discharge tomorrow. Current Medications Current Medications Current Medications: Current Medications Generic Name Dose Route Start Last Admin Trade Name Freq PRN Reason Stop Dose Admin Acetaminophen 650 mg 01/11/25 11:19 Acetaminophen 325 Mg Tablet PO Q4HR PRN Pain 1 to 4, or Fever Albuterol/Ipratropium 3 ml 01/11/25 11:19 01/13/25 07:49 Ipratropium/Albuterol 3 Ml Neb INH 3 ml RTQID BETTIE Administration Atenolol 25 mg 01/12/25 13:00 01/13/25 09:31 Atenolol 25 Mg Tablet PO 25 mg DAILY BETTIE Administration Atorvastatin Calcium 10 mg 01/11/25 21:00 01/12/25 21:13 Atorvastatin 10 Mg Tablet PO 10 mg QPM BETTIE Administration Azithromycin 500 mg 01/12/25 09:00 01/13/25 09:31 Azithromycin 250 Mg Tablet PO 500 mg DAILY BETTIE Administration Ceftriaxone Sodium 1 gm 01/12/25 09:00 01/13/25 09:29 Ceftriaxone 1 Gm Vial IVP 1 gm DAILY BETTIE Administration Enoxaparin Sodium 40 mg 01/12/25 09:00 01/13/25 09:30 Enoxaparin 40 Mg/0.4 Ml Syringe SUBQ 40 mg DAILY BETTIE Administration Guaifenesin 10 ml 01/11/25 11:19 01/13/25 02:11 Guaifenesin/Dextromethorphan 10 Ml Udc PO 10 ml Q6HR PRN Administration Cough Levothyroxine Sodium 88 mcg 01/12/25 07:00 01/13/25 06:54 Levothyroxine 88 Mcg Tablet PO 88 mcg QDAC BETTIE Administration Lisinopril 40 mg 01/12/25 13:00 01/13/25 09:30 Lisinopril 20 Mg Tablet PO 40 mg DAILY BETTIE Administration Ondansetron HCl 4 mg 01/11/25 11:19 Ondansetron Odt 4 Mg Tablet TL Q6HR PRN Nausea / Vomiting Polyethylene Glycol 17 gm 01/13/25 09:00 01/13/25 09:29 Polyethylene Glycol 3350 17 Gm Packet PO 17 gm DAILY BETTIE Administration Prednisone 40 mg 01/11/25 10:21 01/13/25 09:30 Prednisone 20 Mg Tablet PO 40 mg DAILY BETTIE Administration Sodium Chloride 10 ml 01/11/25 11:19 Sodium Chloride Flush 0.9% 10 Ml Syringe IVP PRN PRN NEEDED PER PROVIDER ORDERS Sodium Chloride 10 ml 01/11/25 17:00 01/13/25 09:29 Sodium Chloride Flush 0.9% 10 Ml Syringe IVP 10 ml 0100,0900,1700 BETTIE Administration Objective Vital Signs/Intake & Output Reviewed Vital Signs: Yes Vital Signs: Vital Signs x48h Temp Pulse Pulse Pulse Resp BP Pulse Ox 01/13/25 07:49 78 16 01/13/25 07:36 97.7 F 74 20 129/85 94 01/13/25 04:33 97.9 F 69 18 139/83 H 94 O2 Flow Rate 01/13/25 07:49 2 01/13/25 07:36 2 01/13/25 04:33 2 Intake & Output: Intake & Output 01/10/25 01/11/25 01/12/25 01/13/25 23:59 23:59 23:59 23:59 Intake Total 3323 / 3323 3210 / 3210 530 / 530 Balance 3323 / 3323 3210 / 3210 530 / 530 Weight (kg) 60.781 kg 59.5 kg Objective General Appearance: positive No acute distress and Alert Eyes Bilateral: positive Normal inspection, PERRL and EOMI ENT: positive ENT inspection nml, Pharynx nml and No signs of dehydration Neck: positive Nml inspection, Thyroid nml and No JVD Respiratory: positive Chest non-tender and No respiratory distress; negative Wheezes (mild bibasilar) Cardiovascular: positive Regular rate & rhythm, No murmur and No gallop; negative Bradycardia, Systolic murmur or Diastolic murmur Abdomen: positive Non-tender, No organomegaly and No distention; negative Tenderness, Guarding, Hepatomegaly or Splenomegaly Back: positive Nml inspection; negative CVA tenderness (R) or CVA tenderness (L) Skin: positive Color nml, No rash and Warm Extremities: positive Non-tender, Full ROM and Nml appearance Neurologic/Psychiatric: positive Oriented x3 and Mood/affect nml Lab Results 01/13/25 04:24 01/13/25 04:24 Other Labs: Lab Results x24hrs 01/13/25 Range/Units 04:24 WBC 9.2 (4.8-10.8) x10^3/uL RBC 4.23 (4.20-5.40) 10^6/uL Hgb 12.4 (12.0-16.0) g/dL Hct 39.2 (37.0-47.0) % MCV 92.7 (81.0-99.0) fL MCH 29.3 (27.0-31.0) pg MCHC 31.6 L (32.0-36.0) g/dL RDW 12.5 (12.0-15.0) % Plt Count 305 (130-450) 10^3/uL MPV 10.0 (7.9-10.8) fL Sodium 138 (135-145) mmol/L Potassium 3.7 (3.5-4.5) mmol/L Chloride 101 (101-111) mmol/L Carbon Dioxide 33 H (21-32) mmol/L Anion Gap 4.0 L (6-13) BUN 12 (6-20) mg/dL Creatinine 0.5 L (0.6-1.3) mg/dL Estimated GFR (MDRD) 119 (>89) Glucose 94 (74-104) mg/dL Calcium 8.3 L (8.5-10.3) mg/dL Diagnostic Imaging Diagnostic Imaging Results: positive Final report reviewed Assessment/Plan Problem List (1) Acute hypoxic respiratory failure: Impression: Patient requiring 2 L of oxygen to maintain saturations greater than 92%. Does have an extensive history of tobacco use, currently smoking 5-6 cigarettes. Concern for possible underlying COPD, undiagnosed. Continue DuoNebs 3 mL RT 4 times daily. Continue prednisone 40 mg daily. Continue Rocephin and azithromycin for likely superimposed bacterial pneumonia. Will do oxygen desaturation test tomorrow morning; likely d/c tomorrow pending clinical course. (2) Human metapneumovirus pneumonia: Impression: Management as above. (3) Tobacco dependence: Impression: Advised to quit smoking if able, get PFTs done in the outpatient setting. Nicotine patch ordered. (4) Essential hypertension: Impression: With improvement in blood pressure, atenolol and lisinopril restarted yesterday. Today, will restart amlodipine. (5) Hypothyroid: Impression: Continue Synthroid. Qualifiers: Hypothyroidism type: unspecified Qualified Code(s): E03.9 - Hypothyroidism, unspecified
[2025-01-13] MEDS: amLODIPine 5 MG TABLET PO SCH (12:57)
--- NOTE | 2025-01-14 11:02 | Discharge Summary ---
"Discharge Summary Admit Date: 01/11/25 Discharge Date: 01/14/25 Discharging Provider: Dr. Dino Trevizo Primary Care Provider: Jennifer Delarosa Code Status: Attempt Resuscitation Discharge Facility Name: Home DIAGNOSES Admission Diagnoses: Acute hypoxic respiratory failure Human metapneumovirus pneumonia Tobacco dependence Essential hypertension Hypothyroidism Discharge Diagnoses with Status of Each Condition: Acute hypoxic respiratory failurepatient is still requiring 2 L on rest, and with activity, she's requiring oxygen as well. She may have an underlying diagnosis of COPD due to extensive tobacco use, but has not had PFTs done in the outpatient setting. Will be discharging her home on oxygen. Advised to follow- up very closely with her primary care provider in the outpatient setting. Wean oxygen as able. Will need PFT testing done in the outpatient setting as well. Complete 2 more days of prednisone, complete, complete 2 more days of Augmentin. Patient was not hypoxic at rest with room air saturations of 93%. With exertion on room air her oxygen saturations declined to 87%. With exertion on 2 L oxygen her oxygen saturations were 92%. I am ordering home oxygen, room air at rest and 2 L with exertion to treat her likely underlying COPD and hypoxemia. Human metapneumovirustreatment as above. Tobacco dependencetreatment as above, patient is trying to quit. Hypertensioncontinue home medications including atenolol, lisinopril, amlodipine. Hypothyroidismcontinue Synthroid. HPI History of Present Illness: Patient is a 79-year-old female with a history of tobacco use, hypertension, hypothyroidism who presents after feeling sick for the last 2 to 3 days. She states initially, she had some fatigue, fevers, chills. This is followed by a productive cough. She remains with this cough productive of yellow to green sputum. She has no chest pain, no body aches. After the cough, she noted some wheezing, as well as difficulty breathing. This is what ultimately prompted her to come to the hospital. She does smoke daily, but 5 to 6 cigarettes a day. She has never been diagnosed with any underlying lung disease, including COPD or asthma. She does not use inhalers at home. In the ER, she was saturating 85% on room air she is afebrile, heart rate is 68, respiratory rate is 18, and her blood pressure is ranging between 99/56 to 124/64. Lab work was done, and it indicates a leukocytosis of 12.2, slight hyponatremia of 131. Respiratory viral panel is positive for human metapneumovirus. Chest x-ray does show mild right effusion and opacity. She was started on Rocephin and azithromycin in the emergency room, and admitted for acute hypoxic respiratory failure. CONSULTS | PROCEDURES Consultations: Respiratory therapy Procedures: Chest x-ray HOSPITAL COURSE Hospital Course: Patient is a 79-year-old female with a history of tobacco use, hypertension, hypothyroidism who presented after feeling sick for 2 to 3 days. She was hypoxic on room air, had a leukocytosis of 12.2, as well as a slight hyponatremia of 131. Respiratory virus panel was positive for human metapneumovirus. Chest x-ray showed mild right effusion and opacity. She was started on Rocephin and azithromycin. She completed three days of azithromycin. She needs two more days of Augmentin twice daily to complete her course. She also needs 2 more days of oral steroids. The oxygen saturation study was done, and she is still requiring some oxygen. Will discharge her with oxygen to use at home. She was advised extensively to follow-up with her primary care provider, she will likely need pulmonary function testing done. She likely has some undiagnosed COPD. ALLERGIES Allergies Allergy/AdvReac Type Severity Reaction Status Date / Time No Known Drug Allergies Allergy Verified 12/11/24 15:23 MEDICATIONS Ambulatory Orders Medication Instructions Recorded Confirmed alendronate 70 mg tablet 70 mg PO QWEEK #13 tabs 12/11/24 01/11/25 amlodipine 10 mg tablet 10 mg PO QDAY high blood pressure 12/11/24 01/11/25 #90 tabs atenolol 25 mg tablet See Rx Instructions .Route 12/11/24 01/11/25 .COMPLEX #90 tabs atorvastatin 10 mg tablet 10 mg PO QPM high cholesterol #90 12/11/24 01/11/25 tabs lisinopril 40 mg tablet 40 mg PO QDAY high blood pressure 12/11/24 01/11/25 #90 tabs levothyroxine 88 mcg tablet 88 mcg PO QDAC 01/11/25 01/11/25 albuterol sulfate 90 mcg/actuation 1 inh inhalation QID PRN shortness 01/14/25 aerosol inhaler (Ventolin HFA) of breath or wheezing #8.5 grams amoxicillin 875 mg-potassium 1 tab PO BID #4 tabs 01/14/25 clavulanate 125 mg tablet prednisone 20 mg tablet 40 mg (2 x 20 mg) PO DAILY #2 tabs 01/14/25 PHYSICAL EXAM AT DISCHARGE General Appearance: positive No acute distress and Alert; negative Anxious Eyes Bilateral: positive Normal inspection, PERRL and EOMI ENT: positive ENT inspection nml, Pharynx nml and No signs of dehydration Neck: positive Nml inspection, Thyroid nml, No JVD and Trachea midline Respiratory: positive Chest non-tender, No respiratory distress and Breath sounds nml; negative Wheezes, Rales or Rhonchi Cardiovascular: positive Regular rate & rhythm, No murmur and No gallop; negative Irregularly irregular, Extrasystoles, Tachycardia or Bradycardia Peripheral Pulses: positive 2+ Abdomen: positive Non-tender and No organomegaly; negative Tenderness, Guarding, Hepatomegaly or Splenomegaly Back: positive Nml inspection; negative CVA tenderness (R) or CVA tenderness (L) Skin: positive Color nml, No rash and Warm Extremities: positive Non-tender, Full ROM and Nml appearance Neurologic/Psychiatric: positive Oriented x3, Motor nml and Mood/affect nml LABS 01/13/25 04:24 01/13/25 04:24 DIAGNOSTIC IMAGING Diagnostic Imaging Results: Final report reviewed QUALITY (Female Hip Fx Only) Was patient sent home on osteoporosis medication?: No FOLLOW UP Follow Up: Follow up with primary care provider on discharge. TIME SPENT Time Spent in Discharge (Minutes): 35 Discharge Plan Discharge Patient Disposition: 01 Home, Self Care Condition: Fair Prescriptions: New prednisone 20 mg Tablet 40 mg PO DAILY Qty: 2 0RF amoxicillin-pot clavulanate 875-125 mg tablet 1 tab PO BID Qty: 4 0RF albuterol sulfate [Ventolin HFA] 90 mcg/actuation HFA aerosol inhaler 1 inh inhalation QID PRN (Reason: shortness of breath or wheezing) Qty: 8.5 0RF Continued levothyroxine 88 mcg tablet 88 mcg PO QDAC atorvastatin 10 mg tablet 10 mg PO QPM Qty: 90 0RF amlodipine 10 mg tablet 10 mg PO QDAY Qty: 90 0RF atenolol 25 mg tablet See Rx Instructions .ROUTE .COMPLEX Qty: 90 0RF Dose Instruction: take 1 tablet by mouth once daily Rx Instructions: take 1 tablet by mouth once daily lisinopril 40 mg tablet 40 mg PO QDAY Qty: 90 0RF alendronate 70 mg tablet 70 mg PO QWEEK Qty: 13 3RF Rx Instructions: Take medication on an empty stomach, with at least 8 oz water. Stay upright for at least 30 minutes after med taken to prevent gastritis Activity Restrictions: Activity as Tolerated Diet: Regular Health Concerns: You came in because you are having some shortness of breath. You are found to have human metapneumovirus, which is one of the common cold viruses. You are also found to have a bacterial pneumonia on top of this. We started you on antibiotics, and some breathing treatments, and you are feeling better. I am worried that you may have some underlying COPD that has not been diagnosed yet due to your extensive smoking history. You are still requiring some oxygen, and I we will be discharging you home with home oxygen. I would like you to follow-up with your primary care provider in the next week or 2. You likely need pulmonary function testing when you are fully recovered to test your lung function. I am sending you home with two more days of steroids, two more days of antibiotics, as well as an albuterol inhaler that you can use as needed for shortness of breath. We are glad you are feeling better, thank you for allowing us to take care of you. Print Language: Swazi Patient Instructions: Pulmonary Function Tests, Pneumonia Dc Stand Alone Forms: PCP List Follow-up Care: Jennifer Delarosa [employer] [Primary Care Provider] -"
[2025-01-14 12:04] VITALS: BP 148/82; TEMP 97.7; O2SAT 90
== END 2025-01-14 13:50 | disposition home or self-care (01) | DRG 189 ==
LOC: MS2 22:41 → ED 22:41 → MS2 01-11 11:20
PROVIDERS: ADMIT Internal Medicine; ATTEND Internal Medicine
DX: E03.9 Hypothyroidism, unspecified; F17.210 Nicotine dependence, cigarettes, uncomplicated; J44.0 Chronic obstructive pulmonary disease with (acute) lower respiratory infection; J12.3 Human metapneumovirus pneumonia; I10 Essential (primary) hypertension; J15.9 Unspecified bacterial pneumonia; J96.01 Acute respiratory failure with hypoxia; E87.1 Hypo-osmolality and hyponatremia